=== PATIENT | male | born 1970 | race Caucasian/White ===

== ENCOUNTER 2025-03-10 11:26 | Day surgery (SDC) | payer BC ==
[2025-03-10] MEDS ORDERED: BUPIVACAINE 0.5% VIAL IJ ONE (11:27)
[2025-03-10] MEDS ORDERED: methylPREDNISolone acetate IM ONE (11:27)
[2025-03-10] MEDS ORDERED: propofoL IV ONE (13:17)
[2025-03-10] MEDS ORDERED: Lactated Ringers 1,000 ML IV ONE (13:58)
--- NOTE | 2025-03-10 14:32 | XRAY ---
Indication: Right SI joint injection. Intraoperative fluoroscopy provided for 18 seconds. Single digital spot image submitted for interpretation demonstrates posterior needle tip projecting over right SI joint. Small amount of contrast injected for needle tip placement. Correlate with intraoperative findings/report.
--- NOTE | 2025-03-10 14:34 | XRAY ---
18 seconds of fluoroscopy was used in surgery for a right sacroiliac joint injection.
== END 2025-03-10 13:46 | disposition home or self-care (01) ==
LOC: SDC-PAIN 11:26
PROVIDERS: ATTEND Psychiatry & Neurology Pain Medicine
DX: M46.1 Sacroiliitis, not elsewhere classified (principal)